=== PATIENT | female | born 1950 | race Caucasian/White ===

== ENCOUNTER 2019-11-10 11:05 | Emergency (ER) | payer OTHER, BC ==
[2019-11-10 11:12] VITALS: BP 146/63; PULSE 89; TEMP 98.4; BMI 28.3
[2019-11-10] MEDS ORDERED: DIPHTH,PERTUSS(ACELL),TET 0.5 ML DISP.SYRIN IM ONE ×2 (12:32→12:37)
--- NOTE | 2019-11-10 12:50 | PDOC ---
History of Present Illness - General Chief Complaint: Injury Stated Complaint: LACERATION RT FINGER Time Seen by Provider: 11/10/19 11:21 History Source: Patient - History of Present Illness Timing/Duration: reports: this morning Location: reports: hands Past History - Past Medical History Allergies/Adverse Reactions: Allergies Allergy/AdvReac Type Severity Reaction Status Date / Time Barbiturates Allergy Mild Verified 11/10/19 11:45 Home Medications: Ambulatory Orders NK [No Known Home Medication] 11/10/19 COPD: No - Immunization History Immunization Up to Date: No - Psycho Social/Smoking Cessation Hx Smoking History: Never smoked Review of Systems - Review of Systems Neurological: No: Numbness, Tingling *Physical Exam - Vital Signs Last Vital Signs Temp Pulse Resp BP Pulse Ox 98.4 F 89 18 146/63 97 11/10/19 11:10 11/10/19 11:10 11/10/19 11:10 11/10/19 11:10 11/10/19 11:10 - Physical Exam General Appearance: Yes: Appropriately Dressed. No: Apparent Distress HEENT: positive: Normal Voice Neck: positive: Supple Respiratory/Chest: negative: Respiratory Distress Extremity: positive: Other (~1.5cm linear lac to distal phalanx of R index, no tendorn visualized, no gross FB, passive and actuve ROM intact, sensation intact) Integumentary: positive: Dry, Warm Neurologic: positive: Fully Oriented, Alert, Normal Mood/Affect Procedures - Laceration/Wound Repair Right Finger Wound Length: to 2.5 cm Wound Explored: clean Irrigated w/ Saline: Yes Betadine Prep: Yes Anesthesia: 1% Lidocaine Amount of Anesthetic (ccs): 7 Wound Repaired With: Sutures Suture Size/Type: 5:0 Number of Sutures: 10 Sterile Dressing Applied: Yes ED Treatment Course - RADIOLOGY Radiology Studies Ordered: Category Date Time Status FINGER(S) RIGHT [RAD] Stat Radiology 11/10/19 12:33 Ordered Medical Decision Making - Medical Decision Making 11/10/19 12:33 69-year-old female no significant history here with right index laceration after glass vase broke this morning. No sensory changes. Does not remember her last tetanus vaccine see exam Finger lac No e/o complications, i.e tendon injury -XR neg for fb -Tetanus updated -s/p lac repair -wound check as needed in 48 hrs Discharge - Discharge Information Problems reviewed: Yes Clinical Impression/Diagnosis: Finger laceration Qualifiers: Encounter type: initial encounter Finger: index finger Damage to nail status: without damage Foreign body presence: without foreign body Laterality: right Qualified Code(s): S61.210A - Laceration without foreign body of right index finger without damage to nail, initial encounter Condition: Good Disposition: HOME - Follow up/Referral Referrals: Katiana Collins [Primary Care Provider] - - Patient Discharge Instructions Patient Printed Discharge Instructions: DI for Laceration Repair Additional Instructions: Keep dressing in place for at least 24 hours after which one can be opened to air. You can gently cleaned wound with mild soap and water after 24 hours to prevent crusting over the suture knots. You can also apply an antibiotic ointment twice a day until sutures are removed. Return for redness, discharge or fever Sutures are removed in 8 days Your XR showed no foreign body You were given a tetanus vaccine today - Post Discharge Activity
== END 2019-11-10 13:00 | disposition home or self-care (01) ==
LOC: JERFT 11:05
PROC: 3E0234Z Introduction of Serum, Toxoid and Vaccine into Muscle, Percutaneous Approach (ICD-10-PCS; principal; 2019-11-10)
PROC: 0HQFXZZ Repair Right Hand Skin, External Approach (ICD-10-PCS; 2019-11-10)
DX: S61.210A Laceration without foreign body of right index finger without damage to nail, initial encounter (principal); W25.XXXA Contact with sharp glass, initial encounter; Y93.89 Activity, other specified; Y92.018 Other place in single-family (private) house as the place of occurrence of the external cause; Y99.8 Other external cause status
CPT/HCPCS: 12001-25; 73140-TC-RT-FY; 90471; 90715; 99282-25

== ENCOUNTER 2019-11-20 11:30 | Emergency (ER) | payer OTHER, BC ==
[2019-11-20 11:38] VITALS: BP 135/60; PULSE 95; TEMP 97.9; BMI 28.3
[2019-11-20] MEDS ORDERED: BACITRACIN 15 GM TUBE TOPICAL OINTMENT ONE (12:24)
--- NOTE | 2019-11-20 12:29 | PDOC ---
Suture Removal/Wound Check HPI - History of Present Illness Chief Complaint: Suture/Staple Removal(Here) Stated Complaint: Suture/Staple Removal (other) Time Seen by Provider: 11/20/19 12:03 History Source: Yes: Patient Treated at: [facility] Date of Last ED visit: 11/10/19 - Previous ED Treatment Type of procedure performed on last visit: Yes: Laceration Repair Past History - Past Medical History Allergies/Adverse Reactions: Allergies Allergy/AdvReac Type Severity Reaction Status Date / Time Barbiturates Allergy Mild Verified 11/20/19 11:38 Home Medications: Ambulatory Orders NK [No Known Home Medication] 11/10/19 COPD: No - Immunization History Immunization Up to Date: No - Psycho Social/Smoking Cessation Hx Smoking History: Never smoked Hx Alcohol Use: No Drug/Substance Use Hx: No Suture Removal/Wound Check PE - Physical Exam Laceration/Wound Check Symptoms: denies: Pain, Fever, Chills, Redness Location of Laceration/Wound: left: Finger (distal phalanx of L index, well healing, n/o e/o infxn) *Review of Systems - Review of Systems Constitutional: No: Chills, Fever Integumentary: No: Erythema *Physical Exam - Vital Signs Last Vital Signs Temp Pulse Resp BP Pulse Ox 97.9 F 95 H 16 135/60 96 11/20/19 11:35 11/20/19 11:35 11/20/19 11:35 11/20/19 11:35 11/20/19 11:35 - Physical Exam General Appearance: Yes: Appropriately Dressed. No: Apparent Distress HEENT: positive: Normal Voice Neck: positive: Supple Respiratory/Chest: negative: Respiratory Distress Integumentary: positive: Other (well healing lac to dis phlanx of L index) Medical Decision Making - Medical Decision Making 11/20/19 12:30 Here for suture removal to left index finger. Seen 09/09 and had 10 stitches placed to distal phalanx of left index. States wound healing well with no pain , redness, discharge, fever chills or discharge. Wound well-appearing and healing. 10 sutures removed without any complications Discharge - Discharge Information Problems reviewed: Yes Clinical Impression/Diagnosis: Visit for suture removal Condition: Good Disposition: HOME - Follow up/Referral Referrals: Katiana Collins [Primary Care Provider] - - Patient Discharge Instructions Patient Printed Discharge Instructions: DI for Suture Removal - Post Discharge Activity
== END 2019-11-20 12:37 | disposition home or self-care (01) ==
LOC: JERFT 11:30
DX: Z48.02 Encounter for removal of sutures (principal); Z88.8 Allergy status to other drugs, medicaments and biological substances
CPT/HCPCS: 99281-25